=== PATIENT | male | born 1955 | race Caucasian/White ===

== ENCOUNTER 2023-07-10 08:22 | Day surgery (SDC) | payer MEDICARE, BC ==
[~2023-07-10] VITALS: Ht 188 cm; Wt 94.3 kg
[~2023-07-10 08:22] MED LIST: FISH OIL1000 M2; MULTIVITAMI1 PO; NEURONTIN300 MG PO; NEXIUM40 M1 PO; UNISOM SLEEP25 MG PO
[2023-07-10 11:15] VITALS: BP 155/97
== END 2023-07-10 10:50 | disposition home or self-care (01) ==
LOC: ORM 08:22
PROVIDERS: ATTEND Surgery
PROC: 0DJD8ZZ Inspection of Lower Intestinal Tract, Via Natural or Artificial Opening Endoscopic (ICD-10-PCS; principal; 2023-07-10)
DX: Z12.11 Encounter for screening for malignant neoplasm of colon (principal); K64.8 Other hemorrhoids; Z86.010 Personal history of colon polyps; Z90.49 Acquired absence of other specified parts of digestive tract